=== PATIENT | male | born 1980 | race Caucasian/White ===

== ENCOUNTER 2017-02-07 21:49 | Emergency (ER) | payer MEDICAID ==
[~2017-02-07] VITALS: Ht 160 cm; Wt 65.9 kg
[2017-02-07] MEDS ORDERED: AMOX500T2 PO (21:53)
[2017-02-07] MEDS ORDERED: IBUP-2070 PO (21:53)
[2017-02-08] MEDS ORDERED: CeFAZolin 1 GM/DEXTROSE 50 ML IV ONE (00:45)
[2017-02-08] MEDS ORDERED: MORPHINE SULFATE 4 MG/ML SYRINGE IVP ONE (00:45)
[2017-02-08] MEDS ORDERED: MetroNIDAZOLE 250 MG TABLET PO ONE (00:45)
[2017-02-08] MEDS ORDERED: ONDANSETRON HCL 4 MG/2 ML VIAL IVP ONE (00:45)
[2017-02-08 01:46] VITALS: BP 123/79
== END 2017-02-08 01:47 | disposition home or self-care (01) ==
LOC: EMS 21:51
DX: K04.7 Periapical abscess without sinus (principal); L03.211 Cellulitis of face
CPT/HCPCS: 96374; 96375; 99284; J0690; J2270; J2405